=== PATIENT | female | born 1995 | race Caucasian/White ===

== ENCOUNTER 2016-09-08 20:03 | Inpatient (IN) | payer OTHER ==
[~2016-09-08] VITALS: Ht 175.3 cm; Wt 79.8 kg
[2016-09-08 21:30] LABS: MEAN CORPUSCULAR HEMOGLOBIN 30.4 pg (27.0-33.0); MEAN CORPUSCULAR HGB CONC 33.9 g/dl (32.0-36.5); MEAN CORPUSCULAR VOLUME 89.7 fl (80.0-96.0); RED CELL DISTRIBUTION WIDTH 12.4 % (11.5-14.5)
[2016-09-08 21:45] LABS: METHADONE URINE NEGATIVE (NEGATIVE)
[2016-09-08 21:57] LABS: ALBUMIN/GLOBULIN RATIO 1.25 (1.00-1.93); ALKALINE PHOSPHATASE 82 U/L (45-117); ALT/SGPT 24 U/L (12-78); ANION GAP 8 MEQ/L (8-16); AST/SGOT 14 U/L (15-37); BILIRUBIN,DIRECT 0.1 MG/DL (0.0-0.2); BILIRUBIN,TOTAL 0.4 MG/DL (0.2-1.0); BLOOD UREA NITROGEN 8 MG/DL (7-18); CALCIUM LEVEL 9.5 MG/DL (8.5-10.1); CARBON DIOXIDE LEVEL 25 MEQ/L (21-32); CHLORIDE LEVEL 109 MEQ/L (98-107); CREATININE FOR GFR 0.79 MG/DL (0.55-1.02); GLOMERULAR FILTRATION RATE > 60.0 (>60); GLUCOSE, FASTING 91 MG/DL (70-105); POTASSIUM SERUM 3.9 MEQ/L (3.5-5.1); SODIUM LEVEL 142 MEQ/L (136-145); TOTAL PROTEIN 7.2 GM/DL (6.4-8.2)
[2016-09-08] MEDS ORDERED: MAALOX 30 ML SUSP *UDC PO PRN (23:00)
[2016-09-08] MEDS ORDERED: ACETAMINOPHEN TAB 650MG DOSE (2X325MG) PO PRN (23:00)
[2016-09-08] MEDS ORDERED: MOM 30ML SUSPENSION UDC PO PRN (23:00)
[2016-09-08] MEDS ORDERED: traZODone 50 MG TAB PO PRN (23:00)
[2016-09-08] MEDS ORDERED: ZOSTCRE TOP (23:32)
[2016-09-09 02:07] VITALS: BP 126/76
--- NOTE | 2016-09-09 08:40 | HPEPDOC ---
Medical History and Physical Date of Admission September 08, 2016 at 22:59 History and Physical PCP: [facility] ATTENDING: Dr. Adam Syed HPI: 20yoF admitted to [facility] for other specified depressive disorder, being medically examined today. Patient states she has chronic low back pain which she reports is controlled. She typically uses topical capsaicin cream. She reports no radiation of pain down the legs. No weakness, numbness, or tingling in lower extremities. No loss of bowel or bladder control. She does not complain of neck pain. No weakness, numbness, or tingling in upper extremities. She states she has a pending appointment with pain management 09/14. Denies any fevers, chills, weakness, fatigue, CORNELL, CP, SOB, cough, palpitations, abdominal pain, N/V/D or changes in bowel or bladder habits. PMHx: Chronic low back pain Depression PSHX: SOCHX: [place] in: [place] Marital Status: Kids: 8-month-old twins. Employment: Active duty Tobacco use: 2-3 per day ETOH: One drink every 2 months Illicit Drugs: Denies IV Drug Use: Denies Tattoos done unprofessionally: Denies FAMHX: Mother: Alive, well Father: , liver cancer Siblings: 2 sisters, one brother Alive, well Children: Alive, well Unexpected deaths due to medical reasons: None. ROS: As noted in HPI, otherwise 11pt ROS of systems reviewed and remarkable only for LMP 09/08/2016. She states she is not . PE: GEN: 20yoF, appears stated age. Well-nourished, well developed. No acute distress. Alert and oriented x 3. Pleasant, interactive. HEENT: Normocephalic, atraumatic. Pupils are equal, round, and reactive to light. Extraocular movements are intact. No nystagmus appreciated. Sclera are nonicteric. Conjunctiva without injection. Nose midline. Nasal turbinates without bogginess. EACs both patent BL. TMs both visualized and torres with good cone of light, no bulging or erythema. No facial asymmetry. Moist mucous membranes. Dentition fair. Pharynx pink and moist, no cobblestoning. Neck supple , trachea midline. No lymphadenopathy or thyromegaly appreciated. CHEST: Regular rate and rhythm, +S1, +S2 LUNGS: Clear to auscultation bilaterally. No wheezes, rales, or rhonchi. Breathing appears symmetric and easy. Patient is speaking in full sentences. No accessory muscle use. ABD: Round, soft, non-tender, non-distended. +Bowel sounds throughout. No rebound or guarding. No costovertebral angle tenderness. Well-healed scar is noted. No erythema, no tenderness. EXT: Pulses 2+ bilaterally dorsalis pedis and radial. No lower extremity edema appreciated. SKIN: [place], dry, warm. Capillary refill <2sec. No rashes. NEURO: Alert and oriented x 3. Cranial nerves III-XII are intact. No focal deficits appreciated. There is no tenderness with palpation over the thoracic or lumbar spine area. No paraspinal muscle tenderness. EKG: pending. A&P: 20yoF admitted to [facility] for other specified depressive disorder 1. Psych. Plan per Psychiatry. Obtain baseline EKG to assure the safety of psychiatric medications as they can prolong the QT interval. 2. Nicotine dependence. Patch available. 3. Chronic low back pain. There is no discomfort on examination today. Patient reports her pain has been controlled. She does not wish to pursue opinion with pain management at this time. She has an outpatient appointment with pain management 09/14/16. Outpatient follow-up with PCP and pain management. Continue Tylenol 650 mg every 4 hours as needed. 4. Follow up with PCP on discharge. 5. Add HCG to admission labs. 6. Staff member Stephy present throughout exam Vital Signs Vital Signs Date Time Temp Pulse Resp B/P (MAP) Pulse Ox O2 Delivery O2 Flow Rate FiO2 09/09/16 02:07 99.2 85 16 126/76 (93) 09/08/16 23:38 96 09/08/16 20:04 Room Air Laboratory Data Labs 24H Laboratory Tests 2 09/08/16 21:05: Anion Gap 8, Glomerular Filtration Rate > 60.0, Calcium Level 9.5, Aspartate Amino Transf (AST/SGOT) 14L, Alanine Aminotransferase (ALT/SGPT) 24, Alkaline Phosphatase 82, Total Bilirubin 0.4, Direct Bilirubin 0.1, Total Protein 7.2, Albumin 4.0, Albumin/Globulin Ratio 1.25, Thyroid Stimulating Hormone (TSH) 2.110, Salicylates Level < 1.7L, Urine Amphetamines Screen NEGATIVE, Urine Benzodiazepines Screen NEGATIVE, Urine Opiates Screen NEGATIVE, Urine Methadone Screen NEGATIVE, Acetaminophen Level < 2.0L, Urine Barbiturates Screen NEGATIVE , Urine Phencyclidine Screen NEGATIVE, Urine Cocaine Metabolite Screen NEGATIVE , Urine Cannabinoids Screen NEGATIVE, Ethyl Alcohol Level 0.004 CBC/BMP Laboratory Tests 09/08/16 21:05 Red Blood Count 4.54, Mean Corpuscular Volume 89.7, Mean Corpuscular Hemoglobin 30.4, Mean Corpuscular Hemoglobin Concent 33.9, Red Cell Distribution Width 12.4 Home Medications Scheduled PRN Capsaicin (Zostrix Arthritis Pain Re) 0.025 % Cre, 1 DOSE TOP BID PRN for PAIN PLACES ON LOWER ABDOMEN Allergies Coded Allergies: No Known Allergies (Unverified , 09/08/16) Rosa Wellington September 09, 2016 08:40
--- NOTE | 2016-09-09 08:55 | MHHPEPDOC ---
[facility] History & Physical History and Physical DATE OF ADMISSION: September 08, 2016 at 22:59 LEGAL STATUS AT ADMISSION: 9.39 CHIEF COMPLAINT: "I don't belong here. I can get help as an outpatient". HISTORY OF THE PRESENT ILLNESS: Patient is a 20-year-old female, who was admitted last night for suicidal ideation with plan of driving her motor vehicle into a bridge. Pt is the mother of 8 month old twins and reports having depression during the . Her depression has persisted after delivery as well. She stated she did not know [place] She is opposed to taking medication but is willing to participate in therapy. She has previous psychiatric history. No history of self-harm or self-mutilation. She drinks alcohol "every few months". No detox or rehab. No history of substance abuse. No street drug use, no cannabis. Pt has been for 2 years. She grew up with her in [place]. Her family still lives there- mother and sisters. She had a brother who committed suicide by hanging at age 21. He was suicidal after his girlfriend cheated on him. Pt contracts for safety and asks to be released today. She states she will report immediately to Behavioral Health at [place]. She will attend therapy to work on anxiety related to her current position on post. 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 They are building a gym. Her boss had become very nasty yelling and cussing at them over little things, according to [place]. She says the straw that broke the camel's back was when she received a text yesterday telling her to pack and be ready to leave in the morning to do an exercise with her unit. She said she had no warning of this and it upset her. 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 She finds this very frustrating. PSYCHIATRIC REVIEW OF SYSTEMS: Affective: euthymic Anxiety: moderate Trauma: denies Psychosis: not illicited Personally: cooperative. PAST PSYCHIATRIC HISTORY: Prior Psychiatric Disorder: none, first admission ever Outpatient Treatment: none Suicidal/Self injurious: none Psychotropic Medication History: none ALLERGIES: Please see below. FAMILY PSYCHIATRIC HISTORY:sister had ADHD , no meds, brother committed suicide by hanging at age 21. SOCIAL HISTORY: Early Relations/development: Mother A & W, Father - liver cancer Sibling order: 2 older sisters Paternal relationships: good Education: HS and 1 year of college Occupational: Human Resources by training, AD at [employer] Legal: denies Martial: 2 years, is active duty at [employer] as well. Economic: pay, Supports: , mother, sisters, Abuse/trauma: denies all, no deployments SUBSTANCE ABUSE HISTORY: none, no detox or rehab PAST MEDICAL/SURGICAL HISTORY: 1. HTN in past, no meds 2. VITAL SIGNS: Temperature 99.2 pulse 85, respiratory rate 16, blood pressure 126/ 76. MENTAL STATUS EXAMINATION: General appearance: Patient is a 20-year old female, who is dressed in hospital attire, long dark hair, tall and slender, good eye contact. Speech: spontaneous Thought processes: linear, goal directed Thought content: appropriate, requesting to leave the hospital Abstract reasoning and computation: good Description of associations: good Description of abnormal or psychotic thoughts: denies intent to kill herself, states it was only a thought, not homicidal, no psychotic symptoms observed. Judgment: good Insight: good Orientation: well oriented in all spheres Recent and remote memory: grossly intact Attention span and concentration: good Fund of knowledge: full Mood: "anxious" Affect: congruent DIAGNOSES: 1. adjustment disorder with mixed anxiety and depressed mood. ASSESSMENT: Pt does not want to be here. She agrees she needs help with anxiety and will pursue treatment as an outpatient. She does not want medications. She is very upset by being here and from her twins. She says her will be with her all weekend and that she will go to [facility] upon discharge to schedule appointments for therapy and meet their staff. Her greatest risk factor is the suicide of a family member. She has no psychiatric history whatsoever. Her job has been her source of stress and the text telling her to be ready to leave this morning for 1 day set her contemplate suicide. She insists she would never actually do so. Pt reports decreased concentration on the job (mostly due to lack of interest in the work assigned), no change in appetite, denies feelings hopeless or worthless, reports good sleep but her energy is less. Denies any symptoms of poor impulse control, no mismanagement of money or spending impulsively on things she does not need. No manic or hypomanic symptoms reported. No arguments with others or fighting. Denies psychomotor agitation or retardation. Pt states that information security manager's behavior at work has her questioning "what did I do that was so wrong"? Pt denies constant worry. Denies panic attacks. Radiology Transporter has asked vacation planner to contact for collateral information and to see if [facility] would take her back to . [facility] today with the assurance she will schedule and keep therapy appointments. funeral planner spoke with who has no issue with coming home today. Her command feels she has many family issues as well as work issues and they have worked with her to try and help her out. [place] base believes she is trying to avoid doing the exercise her unit was assigned to do today. One could think that if she is well enough to go home today she was well enough to participate in the excercise. I have asked that KENAN come in on Monday and discharge will occur that day. Pt was informed of this. She is disappointed and stated, "It's my first mother's day". PROBLEM LIST: 1. poor coping skills 2. anxiety 3. risk for suicide INITIAL TREATMENT PLAN: 1. Patient was admitted on a 9.39 2. Complete history was obtained. 3. With patients permission, family will be contacted and database will be expanded. 4. Patients medication regimen will be reviewed and changed accordingly. 5. Patient will be provided with protected environment. 6. Patient will be treated with individual, group, and milieu therapies. 7. Patient will receive supportive psych-education. 8. Discharge planning will commence immediately. 9. Outpatient follow-up treatment will be strongly recommended. 10. The initial treatment plan will focus initially on: see problem list ESTIMATED LENGTH OF STAY: 4 DAYS. TIME SPENT COUNSELING AND COORDINATING INITIAL CARE: 50 minutes. Laboratory Data 24H Labs Laboratory Tests 2 09/08/16 21:05: Anion Gap 8, Glomerular Filtration Rate > 60.0, Calcium Level 9.5, Aspartate Amino Transf (AST/SGOT) 14L, Alanine Aminotransferase (ALT/SGPT) 24, Alkaline Phosphatase 82, Total Bilirubin 0.4, Direct Bilirubin 0.1, Total Protein 7.2, Albumin 4.0, Albumin/Globulin Ratio 1.25, Thyroid Stimulating Hormone (TSH) 2.110, Salicylates Level < 1.7L, Urine Amphetamines Screen NEGATIVE, Urine Benzodiazepines Screen NEGATIVE, Urine Opiates Screen NEGATIVE, Urine Methadone Screen NEGATIVE, Acetaminophen Level < 2.0L, Urine Barbiturates Screen NEGATIVE , Urine Phencyclidine Screen NEGATIVE, Urine Cocaine Metabolite Screen NEGATIVE , Urine Cannabinoids Screen NEGATIVE, Ethyl Alcohol Level 0.004 CBC/BMP Laboratory Tests 09/08/16 21:05 Red Blood Count 4.54, Mean Corpuscular Volume 89.7, Mean Corpuscular Hemoglobin 30.4, Mean Corpuscular Hemoglobin Concent 33.9, Red Cell Distribution Width 12.4 Medications Scheduled PRN Capsaicin (Zostrix Arthritis Pain Re) 0.025 % Cre, 1 DOSE TOP BID PRN for PAIN, (Reported) PLACES ON LOWER ABDOMEN Allergies Coded Allergies: No Known Allergies (Unverified , 09/08/16) Tania Zavaleta September 09, 2016 08:55
[2016-09-09 09:59] LABS: HCG, SERUM QUANTITATIVE < 1.0 MIU/ML
[2016-09-09] MEDS ORDERED: hydrOXYzine 25 MG TAB PO PRN (11:15)
[2016-09-09 18:00] VITALS: BP 122/58
[2016-09-10 06:46] VITALS: BP 125/62
--- NOTE | 2016-09-10 17:18 | ECGEPIP ---
Stationary ECG Study [facility] Test Date: 2016-09-09 Pat Name: OBINNA VASQUEZ Department: Room: [place] [address] Gender: F Product Sales Engineer: IRENE : 1995 Requested By: Rosa Wellington Order Number: [id number] Reading MD: Adam Wood Measurements Intervals [place] Rate: 65 P: 19 MS: 168 QRS: 28 QRSD: 98 T: 39 QT: 401 QTc: 418 Interpretive Statements SINUS RHYTHM Poor R-wave progression. No prior ECG available for comparison at the time of interpretation. Electronically Signed On 09-10-2016 17:17:51 EDT by Adam Wood
[2016-09-10 18:00] VITALS: BP 123/72
[2016-09-11 06:29] VITALS: BP 113/55
--- NOTE | 2016-09-11 12:15 | IPN ---
DATE: 09/10/2016 20-year-old female admitted for depression and suicidal ideation. Patient was planning to drive her vehicle into a bridge. Patient had twins 8 months ago and was reporting depression during the . SUBJECTIVE: "I am feeling a little better". OBJECTIVE: Patient is improving slowly. Patient is using psychosocial intervention . Patient is interacting better with other patients and staff. Patient is requesting to be able to see her babies during this weekend. MENTAL STATUS EXAMINATION: Patient is dressed in [facility]. She is clean and well groomed. She is calm and cooperative. Has fair eye contact. Speech is slow and monotone but improving. Mood is depressed and anxious but also improving. Affect is not as restricted. No delusions or hallucinations. Memory is fair. Patient is fully oriented. Associations are intact. Thinking is logical. Thought content is appropriate. Patient is able to contract for safety and denies suicidal or homicidal ideation during the interview. Insight and judgment is fair. ASSESSMENT: 1. Depression. 2. Suicidal ideation. PLAN: 1. Continue close monitoring. 2. Continue individual and group therapy.
[2016-09-11 18:00] VITALS: BP 111/58
--- NOTE | 2016-09-12 03:06 | IPN ---
DATE OF SERVICE: 09/11/2016 20-year-old female admitted for depression and suicidal ideation. Patient was planning to drive her vehicle into a bridge. SUBJECTIVE: "I am feeling better." OBJECTIVE: Patient continues to improve slowly. Patient is reporting improvement from the psychosocial interventions and hospital milieu. Patient is interacting better with other patients and staff. Patient has been able to see her babies today and was very grateful she was able to do so. Patient is motivated for treatment. MENTAL STATUS EXAMINATION: Patient is dressed in [facility]. Patient is clean and well groomed, is calm and cooperative. Patient has fair eye contact. Speech is normal in rate, volume, articulation, is coherent and is spontaneous. Mood is depressed, but improving. Affect is congruent with mood. There is no evidence of delusions or hallucinations. Short and long-term memory are fair. Patient is fully oriented. Associations are intact. Thinking is logical. Thought content is appropriate. Patient is able to contract for safety in the unit. Insight and judgment is fair. ASSESSMENT: 1. Depression. 2. Suicidal ideation. PLAN: 1. Continue with individual and group therapy. 2. Chain of command has been scheduled for tomorrow.
[2016-09-12 07:02] VITALS: BP 135/63
--- NOTE | 2016-09-12 13:59 | MHDSPDOC ---
[facility] Discharge Summary Discharge Summary DATE OF ADMISSION: September 08, 2016 at 22:59 DATE OF DISCHARGE: September 12, 2016 DISCHARGE DIAGNOSES: 1. 2. . REASON FOR ADMISSION: pt became suicidal after notified of an unexpected unit exercise at 0500 the next day. CONSULTANTS INVOLVED: na TREATMENT AND PROGRESS ON THE UNIT : pt began to request discharge upon admission. this was not seen to be a very good option at the time once [place]. Pt may have been using the hospital as a way to avoid the exercise her unit was taking part in that day. She was kept for observation and for therapy over the weekend. She declined medications after talks about them and what would be beneficial and why. Pt prefers to use only therapy for a treatment intervention. Pt is not breast feeding. HOSPITAL COURSE: wanted pt home and pt wanted to go home. Attending allowed infants to visit on the weekend and the visit went well. On Monday pt was attending some groups and getting along well with peers. Pt denied any suicidal thoughts after getting to the hospital. She was consistent about this statement during her admission. DISCHARGE ASSESSMENT:Pt was in crisis after receiving a text that her unit was going out on exercise at 0500 hours the next day. She did not feel she could just pack up and leave her 8 month old twins. Father of babies available to help and apparently they have other supports for the children in the area. She reported to and told them she had a plan of driving her car into a bridge or something to kill herself. She was sent to our ER for evaluation and subsequently admitted. Once admitted she did not want to be here. Her spoke with office workforce planner on several occasions, trying to convince us to discharge her. Bullion Weigher decided it would not be in her best interest to go home so quickly and reluctantly she agreed to stay. She states she learned a lot about how serious suicide is from the people she met on the unit. She can also verbalize coping skills to use when under stress such as meditation, breathing, yoga, relaxation and talking about her stress with someone. Pt agreed to therapy as an outpatient at the [facility] for individual counseling. She says she has resolved the issues she had before with her and it is not confirmed if this is the case or not. Apparently he was sending inappropriate texts to a female member of his unit. Chain of command meeting was completed this afternoon at 1300 hrs. MENTAL STATUS EXAMINATION ON DISCHARGE: Patient is a 20-year old female, who is dressed in street clothes, well groomed , good eye contact, appears stated age. Speech is spontaneous and clear. Language skills are good Thought processes including: goal directed Thought content: appropriate, anticipating returning home and to work. Abstract reasoning, and computation: good. Description of associations: good. Description of abnormal or psychotic thoughts: none Judgment: fair Insight: fair Orientation to person, place, time and situation. Recent and remote memory:intact Attention span and concentration: good. Fund of knowledge: full Mood: euthymic Affect: congruent MEDICATIONS ON DISCHARGE:none - for . - for . - for . PLAN/FOLLOWUP ARRANGEMENTS: report to [facility] immediately upon discharge. Intake appt on 09/13/16 for therapy. The amount of time spent in the coordination of care for this patient was approximately 25 minutes. Vital Signs/I&Os Vital Signs Date Time Temp Pulse Resp B/P (MAP) Pulse Ox O2 Delivery O2 Flow Rate FiO2 09/12/16 07:02 98.3 100 18 135/63 (87) 09/08/16 23:38 96 09/08/16 20:04 Room Air Medications Scheduled PRN Capsaicin (Zostrix Arthritis Pain Re) 0.025 % Cre, 1 DOSE TOP BID PRN for PAIN, (Reported) PLACES ON LOWER ABDOMEN Allergies Coded Allergies: No Known Allergies (Unverified , 09/08/16) Tania Zavaleta September 12, 2016 13:59
== END 2016-09-12 13:40 | disposition home or self-care (01) | DRG 882 ==
LOC: M ED 21:42 → M ED INP 22:59 → M PSY 23:48
PROVIDERS: ADMIT Psychiatry & Neurology Psychiatry; ATTEND Psychiatry & Neurology Psychiatry
DX: F43.23 Adjustment disorder with mixed anxiety and depressed mood (principal); R45.851 Suicidal ideations; M54.5 Low back pain; F17.210 Nicotine dependence, cigarettes, uncomplicated; Z79.899 Other long term (current) drug therapy; Z81.8 Family history of other mental and behavioral disorders; Z80.9 Family history of malignant neoplasm, unspecified